=== PATIENT | female | born 1960 | race Caucasian/White ===

== ENCOUNTER → 2020-10-31 02:46 | Outpatient (CLI) | payer OTHER, SELFPAY ==
[2020-10-31 23:31] LABS: SARS-CoV-2 RNA PCR Negative
== END ==
PROVIDERS: Visit Provider Internal Medicine Critical Care Medicine
DX: R68.89 Other general symptoms and signs (principal); Z20.822 Contact with and (suspected) exposure to COVID-19
CPT/HCPCS: C9803; U0003; U0005